=== PATIENT | male | born 1960 | race Caucasian/White ===

== ENCOUNTER 2021-12-29 08:01 | Emergency (ER) | payer SELFPAY ==
[~2021-12-29] VITALS: Ht 170.2 cm; Wt 122.5 kg
[2021-12-29] MEDS ORDERED: NACL 0.9% 1,000 ML IV ONE (08:05)
[2021-12-29 08:09] VITALS: BP 151/102
--- NOTE | 2021-12-29 08:09 | NUR ---
71 Y/O MALE BIBA FROM STREETS C/O ETOH. PER EMS 24 PACK OF MODELO WAS FOUND NEAR PT. [facility]CS 14. ON ROOM AIR .SKIN IS PINK/WARM/DRY; LUNGS CLEAR BL; HR EVEN AND REGULAR; VSS; PATIENT POSITIONED FOR COMFORT; HOB ELEVATED; BEDRAILS UP X2; BED DOWN. ER MD MADE AWARE OF PT STATUS. MEDHX: UNK UNK ALLERGIES.
--- NOTE | 2021-12-29 08:28 | NUR ---
PT TAKEN TO CT SCAN VIA [facility]
--- NOTE | 2021-12-29 08:30 | NUR ---
BLOOD WORK GIVEN TO BALA NARVAEZ
[2021-12-29 08:44] LABS: BASOPHILS # (AUTO) 0.1 K/uL (0.00-0.22); BASOPHILS % (AUTO) 0.8 % (0.0-2.0); EOSINOPHILS # (AUTO) 0.1 K/uL (0-0.4); EOSINOPHILS % (AUTO) 1.3 % (0.0-4.0); HEMATOCRIT 47.6 % (36-52); HEMOGLOBIN 15.6 g/dL (12.0-18.0); LYMPHOCYTES # (AUTO) 2.3 K/uL (2.0-11.5); LYMPHOCYTES % (AUTO) 32.8 % (20.5-51.1); MEAN CORPUSCULAR HEMOGLOBIN 28 pg (27-31); MEAN CORPUSCULAR HGB CONC 33 g/dL (33-37); MONOCYTES # (AUTO) 0.6 K/uL (0.8-1.0); MONOCYTES % (AUTO) 8.4 % (1.7-9.3); NEUTROPHILS % (AUTO) 56.7 % (42.2-75.2); PLATELET COUNT (AUTO) 229 K/uL (140-450); RED BLOOD CELL COUNT(AUTO) 5.54 MIL/uL (4.20-6.10); RED CELL DISTRIBUTION WIDTH 13.9 % (11.6-13.7)
--- NOTE | 2021-12-29 08:44 | NUR ---
PT RETURNED FROM CT
[2021-12-29 09:11] LABS: ALBUMIN 3.7 g/dL (3.4-5.0); ANION GAP 14.5 (8-16); ASPARTATE AMINOTRANSFERASE 62 U/L (15-37); CARBON DIOXIDE 25.3 mmol/L (21-32); CHLORIDE 104 mmol/L (98-107); CREATININE 0.7 mg/dL (0.6-1.3); GFR ARICAN-AMERICAN 143 mL/min (>90); GLUCOSE 237 mg/dL (74-106); POTASSIUM 3.8 mmol/L (3.5-5.1); SALICYLATE 2.8 mg/dL (2.8-20.0); SODIUM SERUM 140 mmol/L (136-145); TOTAL BILIRUBIN 0.2 mg/dL (0.0-1.0); UREA NITROGEN, BLOOD 7 mg/dL (7-18)
[2021-12-29 09:12] LABS: ACETAMINOPHEN < 0.5 ug/ml (10-30)
--- NOTE | 2021-12-29 09:24 | NUR ---
# 16 FR Urinary catheter inserted utilizing sterile technique. Immediate return of 30 ml YELLOW urine noted. Urine sample collected and sent to lab. Pt tolerated procedure WELL.
[2021-12-29 09:53] LABS: BARBITURATE, URINE NEGATIVE ng/ml (NEG <=200); BENZODIAZEPINE, URINE NEGATIVE ng/mL (NEG <=200); CANNABINOID, URINE NEGATIVE ng/mL (NEG <=50); COCAINE, URINE NEGATIVE ng/mL (NEG <=300); OPIATE, URINE NEGATIVE ng/mL (NEG <=2000); PHENCYCLIDINE SCREEN,URINE NEGATIVE ng/mL (NEG <=25)
--- NOTE | 2021-12-29 12:11 | NUR ---
PT DENIES HAVING MEDICAL PROBLEMS
[2021-12-29 12:20] VITALS: BP 134/91
--- NOTE | 2021-12-29 12:20 | NUR ---
Patient discharged with v/s stable. Verbal after care instructions given. Patient verbalized understanding. Ambulatory with steady gait. All questions addressed prior to discharge. Advised to follow up with PMD.
--- NOTE | 2021-12-29 12:20 | NUR ---
The patient's care was reviewed and supervised by Aiden Mendosa RN.
== END 2021-12-29 12:20 | disposition home or self-care (01) ==
LOC: EDBD 08:01 → MED 08:01
DX: R41.82 Altered mental status, unspecified (principal); F10.129 Alcohol abuse with intoxication, unspecified
CPT/HCPCS: 36415; 70450; 71045; 72125; 80053; 80305; 85025; 96360; 99285; G0480; G0482; J7030